=== PATIENT | male | born 1960 | race Caucasian/White ===

== ENCOUNTER 2016-07-03 09:02 | Day surgery (SDC) | payer BC ==
[~2016-07-03] VITALS: Ht 175.3 cm; Wt 90.1 kg
[2016-07-03] VITALS (13 sets, daily range): BP systolic 110–156; BP diastolic 69–97; PULSE 79–110; RESP 10–27; Ht 175.3 cm; Wt 90.1 kg
[~2016-07-03 09:02] MED LIST: CEFAZOLIN 1 GM/50 ML (PMX) 50 ML IVPB ONE
[2016-07-03] MEDS ORDERED: LISI1TAB6 PO (09:26)
[2016-07-03] MEDS ORDERED: LACTATED RINGER'S 1,000 ML IV SCH (10:30)
--- NOTE | 2016-07-03 11:29 | RADRPT ---
PROCEDURE: XR Abdomen. CLINICAL INDICATION: Pre-op. Kidney stones. TECHNIQUE: Two AP view of the abdomen and pelvis is available for review. COMPARISON: None. FINDINGS: The bowel gas pattern is normal. There is no evidence of obstruction. Benign phleboliths are seen wi thin the lower pelvis. There is a small approximately 8 mm calcification seen in the left mid pelvis overlapping the left side of the sacrum which may actually represent a distal ureteral calculus. CT renal stone survey would be confirmatory as deemed necessary. No other obvious or definite calculi are identified. The osseous structures are unremarkable. IMPRESSION: 1. Small 8 mm left pelvic calculus which may represent a distal ureteral calculus, although a benig n phlebolith is within the differential. I have no prior CT or x-ray imaging for comparison at this time. 2. Numerous benign phleboliths are seen within the pelvis at this time. 3. No calculi are seen overlying the expected location of the kidneys on either side. RPTAT: HMJB .Marquis Gonzalez MD, Date Time Electronically viewed and signed by .Marquis Gonzalez MD, MD on 07/03/2016 11:29 .B/
--- NOTE | 2016-07-03 11:43 | HP ---
DATE OF ADMISSION: 07/03/2016 CHIEF COMPLAINT: Left flank pain. HISTORY OF PRESENT ILLNESS: This patient developed left-sided flank pain in November of 2015. His CT u rogram revealed an 8 mm left ureteral stone, left hydronephrosis. He also was found to have a 2 mm left renal stone and a 1 mm right renal stone. The patient was having left sided intermittent flank pain; however, he reports overall his pain has resolved. He has not seen his stone pass. PAST MEDICAL HISTORY: No hypertension, no diabetes. PAST SURGICAL HISTORY: Thyroid surgery in 1996. ALLERGIES: NO KNOWN DRUG ALLERGIES. SOCIAL HISTORY: Rare smoking. Occasional alcohol. MEDICATIONS: The patient was taking tamsulosin for sexual problems, but he stopped. FAMILY HISTORY: No cancer. REVIEW OF SYSTEMS: CONSTITUTIONAL: No fevers, no chills, no change in appetite, weight gain, or weight loss. HEENT: No loss of hearing, no ear/sinus pain. No rhinorrhea, nosebleed, or sore throat. CARDIOVASCULAR: No chest pain, no shortness of breath or heart palpitations. RESPIRATORY: No cough. No phlegm production, wheezing or hemoptysis. GASTROINTESTINAL: No abdominal pain, no cramping, no nausea. MUSCULOSKELETAL: No bone pain. No change in strength or joint pain. INTEGUMENTARY: No skin rash or lesions. NEUROLOGICAL: No dizziness, no headaches, no numbness. PSYCHIATRIC: No suicidal ideation. No depression. PHYSICAL EXAMINATION: CONSTITUTIONAL: The patient appears to be in no acute distress. GASTROINTESTINAL: Abdomen is soft, normal bowel sounds, nondistended, nontender. Hernia exam: Non e noted. Liver and spleen normal. 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 The patient also has scrotal warts, which have be come larger over time. Testes descended bilaterally. Urethral meatus normal in size and location. Penis: No deformity, no lesions, no scarring. ASSESSMENT: 1. Mild to moderate left hydronephrosis. 2. Left mid ureteral stone. 3. Scrotal varices. 4. Sebaceous cyst. 5. Left ureteral stone 8 mm, and 2 mm left renal stone. RECOMMENDATIONS: I have spoken with the patient in detail about the natural history and biology of kidney stones as well as his warts. We have discussed various treatment options. Among these optio ns, the patient has elected to undergo a left ureteroscopy, laser lithotripsy, placement of left ure teral stent, left retrograde pyelogram and cystoscopy as well as excision of the scrotal warts. Thi s procedure has been explained to the patient in detail. The risks and benefits have been discussed . He understands that risks include, but are not limited to infection, bleeding, damage to adjacent structures, heart problems, lung problems, possibility of need for further surgery, DVT, PE, LA, CV A, nonresolution of symptoms, recurrence of symptoms, need for other treatments, need for other surg eries, nonresolution of stone, inability to advance the ureteroscope up to the stone, ureteral stric ture, renal injury, bladder injury, voiding dysfunction. All of his questions have been answered, n o guarantees given. He would like to proceed. Dictated By: VIANNEY VERMA MD, SR/JOHN Conf#: [id number] DID#: [id number]
[2016-07-03] MEDS ORDERED: PROPOFOL 20 ML ONE ×2 (12:10→15:07)
[2016-07-03] MEDS ORDERED: METOCLOPRAMIDE 10 MG INJ ONE (12:10)
[2016-07-03] MEDS ORDERED: MIDAZOLAM 1 MG/ML 2 ML INJ ONE ×2 (12:12→14:38)
[2016-07-03] MEDS ORDERED: CEFAZOLIN 1 GM INJ ONE (12:22)
[2016-07-03] MEDS ORDERED: IOHEXOL 300MG/ML 30 ML BTL ONE (12:41)
[2016-07-03] MEDS ORDERED: EPHEDrine SULFATE 50 MG/5 ML SYG ONE (13:03)
[2016-07-03] MEDS ORDERED: LABETALOL HCL 20MG INJ IV PRN (14:00)
[2016-07-03] MEDS ORDERED: OXYCODONE/ACETAMINOPHEN (5/325) TAB PO PRN ×2 (14:00)
[2016-07-03] MEDS ORDERED: BUPIVACAINE 0.5%/EPI (SDV) 30 ML INJ ONE (14:00)
[2016-07-03] MEDS ORDERED: hydrALAzine 20 MG INJ IV PRN (14:00)
[2016-07-03] MEDS ORDERED: ONDANSETRON 4 MG INJ IV PRN (14:00)
[2016-07-03] MEDS ORDERED: MEPERIDINE 25 MG INJ IV PRN (14:00)
[2016-07-03] MEDS ORDERED: HYDROmorphONE (0.2 MG/ML) 10ML SYG IV PRN ×3 (14:00)
[2016-07-03] MEDS ORDERED: DIPHENHYDRAMINE 50 MG INJ IV PRN ×2 (14:00→15:00)
--- NOTE | 2016-07-03 14:19 | RADRPT ---
PROCEDURE: Intraoperative imaging of the abdomen and pelvis with fluoroscopy. CLINICAL INDICATION: Abdominal pain. Intraoperative. TECHNIQUE: 20 images of the abdomen and pelvis were obtained in the operating room with an image i ntensifier. No radiologist was in attendance. 38.0 of fluoroscopy time was used. COMPARISON: No prior study is available for comparison. FINDINGS: Images demonstrate injection of contrast into the left ureter. There is moderate left hydroureteron ephrosis. An obstructing calculus is noted in the distal left ureter as seen on the prior abdomen r adiograph. Subsequent images demonstrate instrumentation of the left kidney with a flexible endoscop e. The final images demonstrate satisfactory placement of a double pigtail left ureteral stent. IMPRESSION: 1. Satisfactory intraoperative imaging of the abdomen and pelvis. RPTAT: QQ .Rikki Sargent MD, Date Time Electronically viewed and signed by .Rikki Sargent MD, MD on 07/03/2016 14:18 .R/
[2016-07-03] MEDS ORDERED: FENTAnyl 50 MCG/ML VIAL ONE (14:46)
--- NOTE | 2016-07-03 14:54 | OPPN ---
Date/Time of Note Date/Time of Note DATE: 07/03/16 TIME: 14:48 Operative/Procedure Note Pre-Operative Diagnosis Left ureteral stone Scrotal lesions Post-Operative Diagnosis left ureteral stone scrotal lesions Procedure Left ureteroscopy stone lithotripsy Left Stent Placement, RPG Excisional biopsy of scrotal lesions Surgeon: VIANNEY VERMA Findings 50 -100 tightly packed cauliflower looking lesions bilateral scrotum with more lesions dispersed laterally: 12 of these lesions were removed 1 cm distal ureteral stone + impaction Implants/Grafts 6 [place] 28 cm stent Estimated blood loss: 0 - 10 ml's Drains 18 Fr segura cath Specimens ureteral stone left scrotal lesions Complications: None Anesthesia type: general VIANNEY VERMA Jul 03, 2016 14:54
--- NOTE | 2016-07-03 14:57 | PDOCDIS ---
Discharge Instructions CONDITION Patient Condition: Good HOME CARE INSTRUCTIONS: Diet Instructions: Regular ACTIVITY: Activity Restrictions: Slowly Increase Activity Avoid heavy lifting No Sexual Activity Bathing Restrictions: Shower FOLLOW UP/APPOINTMENTS Appointments 3 - 4 weeks for stent removal OTHER ORDERS: Other Orders: instruct pt to expect: left flank pain and left kidney pain with urination, blood in urine, frequent urination SCHOOL/WORK RELEASE May return to School/Work on: Jul 10, 2016 VIANNEY VERMA Jul 03, 2016 14:57
[2016-07-03] MEDS ORDERED: MIDAZOLAM 1 MG/ML 2 ML INJ IV PRN (15:00)
[2016-07-03] MEDS ORDERED: FENTAnyl 50 MCG/ML VIAL IV PRN (15:00)
--- NOTE | 2016-07-03 17:46 | OPR ---
DATE OF OPERATION: 07/03/2016 PREOPERATIVE DIAGNOSES: 1. Left ureteral stone. 2. Scrotal lesions worrisome for warts. POSTOPERATIVE DIAGNOSES: 1. Left ureteral stone. 2. Left hydronephrosis. 3. Bilateral scrotal lesions. PROCEDURES PERFORMED: 1. Cystoscopy with left retrograde pyelogram. 2. Left ureteroscopy, laser lithotripsy, and stone basket extraction. 3. Placement of left ureteral stent. 4. Excisional biopsy of scrotal lesions (12 lesions were excised). INDICATIONS FOR PROCEDURE: This patient has a history of left hydronephrosis and a left ureteral st one. Furthermore, he has a history of scrotal lesions. He is scheduled to undergo the above said p rocedure. The procedure has been explained to the patient in detail. Risks and benefits have been discussed. He understands risks include but are not limited to infection, bleeding, damage to adjac ent structures, heart problems, lung problems, possibility of need for further surgery, DVT, PE, MO, CVA, nonresolution of symptoms, recurrence of symptoms, need for other treatments, need for other s urgeries, inability to advance the ureteroscope up to the stone, need for other stone treatments, ur eteral injury, ureteral stricture, bladder injury, urethral stricture, scrotal injury. All of his q uestions have been answered, no guarantees given. He would like to proceed. FINDINGS: The patient had a very impacted distal ureteral stone. This stone was located about 4 cm proximal to the ureterovesical junction. Stone was impacted into the left ureteral wall. Furtherm ore, there were smaller stones stacked on top of the main large one which was about 1 cm. At the en d of the procedure, the patient appeared to be stone free. A 6-Iranian 28 cm stent was placed for th e patient. The patient also had 5200 tightly packed raised scrotal lesions bilaterally with some sa tellite lesions. These lesions appeared to be tiny cauliflower looking lesions which were red and b rown. He also had a sebaceous cyst of the scrotum. Twelve of these lesions were excisionally biops ied; 2 from the left side and 10 from the right side. It was not possible to remove all the lesions short of excising about 80% of the scrotal skin. PROCEDURE IN DETAIL: The patient was brought to the operating room, underwent general anesthesia. He was placed in the lithotomy position. Abdomen, perineum, and genitalia were prepped and draped i n usual sterile fashion. A 22-Iranian cystoscope was placed transurethrally. Urethra was normal. P rostate was moderately obstructive. There was a thin urethral stricture in the membranous urethra w hich was dilated gently with the cystoscope. Bladder neck was moderately elevated. Bladder was ent ered, 1+ trabeculation was identified. Ureteral orifices were orthotopic. No bladder tumors were s een. No stones were seen in the bladder. An open-ended catheter was placed into the left ureteral orifice, and a retrograde pyelogram was per formed. The stone was identified to be about 1 cm located in the distal ureter, about 4 to 5 cm pro ximal to the ureteral orifice. There was proximal ureteral dilation and renal pelvis calyceal dilat ion, moderate to severe. An attempt was made to pass a wire; however, the wire would not pass beyon d the area of the stone. Cystoscope was discontinued. An 8-Iranian semirigid short ureteroscope was placed transurethrally. This was brought into the [facility] under direct vision. Next, the left ureteral orifice was intubated with the ureteroscope. At t his point, a guidewire was placed through the working channel. The ureteroscope was then advanced u p to the stone. At this point, under direct vision, a wire was passed beyond the stone up into the left kidney under fluoroscopy and direct vision. The ureteroscope was temporarily removed. The wir e was kept as safety. Ureteroscope was placed back into the patient and brought up to the stone. Attention was paid to the laser lithotripsy of the stone. A 200 micron laser fiber was used to eva t the stone. Initial settings were at 8 Hz and 0.8 joules. Maximal settings were 10 Hz and 1 kiloj oule. Stone was treated around its periphery toward the center. Of note, the stone was very impact ed toward the medial and posterior aspect of the ureter. The mucosa was very edematous. There were portions of the ureter which appeared to have had decreased or thinned out mucosa due to the impact ion of the stone. Stone was gently treated until it was treated to dust as well as some tiny smalle r 1 to 2 or 3 mm fragments. Furthermore, there was another 2 to 3 mm fragment which was separate fr om the stone. This was also treated. At this point, the ureteroscope was used to advance a nitinol tipless basket into the ureter. The s tones were individually grasped and brought and placed into the bladder. Multiple passes were made until all the stone fragments had been removed from the ureter in this fashion. The ureteroscope wa s then further advanced up the ureter proximal to the area of the stone impaction. The ureter was v myla edematous and contained frons of bullous edema mucosa. The scope was advanced all the way up to the proximal ureter, and no other stone fragments were seen. At this point, the ureteroscope was u sed to advance the secondary wire. Once this was done, the ureteroscope was discontinued. One wire was used as safety while the other was used to advance an 8-Iranian flexible digital uretero scope all the way up into the left kidney. This was done under direct vision and fluoroscopy. Forrest scopy was performed. Upper pole, middle pole, and lower pole calices were individually examined und er direct vision and fluoroscopy. No stones were seen in any of these calices. There was increased debris and dilation of the kidney; however, no stones were identified. Renal pelvis was also exami miguel. No stones were seen. The ureteroscope was then brought the entire length of the ureter, and n o other stones were seen. The ureteroscope was discontinued. Over the existing wire, an open-ended catheter was readvanced. Retrograde pyelogram was performed t o opacify the left kidney and exhibited no extravasation. Next, the wire was placed back. At this point, the cystoscope was backloaded onto the wire and brought into the bladder. A 6-Iranian 28 cm s tent was then advanced over the wire. The tip of the stent was brought up into the upper pole of th e kidney. The wire was retracted under fluoroscopy. A complete coil was obtained in the left upper pole of the kidney. Next, the stent was further advanced. At this point, the wire was completely and a complete coil was also obtained in the bladder. At this point, the cystoscope was used to remove all of the stone fragments from the bladder. The stone fragments were collected and sent to pathology as left ureteral stones. An 18 Iranian urethral catheter was also placed for the patien t. Cystogram was performed to confirm correct placement in the bladder. The catheter was placed do wn to gravity. Attention was then paid to the treatment of the warts. The previous drapes were removed. The patie nt's scrotum was shaved. It was reprepped and redraped. Attention was then paid to excision of lucita e of these lesions on the scrotum. The patient contained probably about 50 to 100 individual raised lesions which appeared to be tiny cauliflower looking lesions studded along the right and left bethany scrotum. There were some satellite lesions further away from the center of the scrotum. There was also about a 0.5 cm sebaceous cyst in the right upper scrotum. Two u.s. representative lesions from the left upper scrotum were excised using sharp excision. These were collected and sent to pathology as left upper scrotal lesions. The base was then cauterized. On the right side of the scrotum, multi ple lesions were obtained from the right lateral aspect as well as the right superior aspect of the scrotum. Excision was performed using sharp dissecting scissors down to subcutaneous tissue. These lesions were collected and sent to pathology as right superior scrotal lesions as well as right lat eral scrotal lesions. The area of excisional biopsies was all cauterized. Next, the skin was reapp roximated using 4-0 Vicryl interrupted sutures. Of note, it was not physically possible to individu ally remove these lesions since they were tightly packed, great in number, and essentially encompass ed about 80% of the scrotum. Therefore, it was not possible to completely excise all of these lesio ns short of excision of most of the scrotum. At this point, the patient was placed back in the supine position. A dry dressing was applied to th e scrotum. He was then awakened, extubated, and taken to recovery room. POSTOPERATIVE CONDITION: Stable. COMPLICATIONS: None. BLOOD LOSS: Less than 10 mL. BLOOD ADMINISTERED: None. SPECIMENS SENT TO LAB: Scrotal lesions as described above as well as left ureteral stones. DRAINS AND PACKS: 18-Iranian urethral catheter and 6-Iranian 28 cm left ureteral stent. Dictated By: VIANNEY VERMA MD, SR/JOHN Conf#: [id number] DID#: [id number]
--- NOTE | 2016-07-03 23:10 | DS ---
DATE OF ADMISSION: 07/03/2016 DATE OF DISCHARGE: 07/03/2016 ADMITTING DIAGNOSES: Left ureteral stone and bilateral scrotal lesions worrisome for warts. DISCHARGE DIAGNOSES: Left ureteral stone and bilateral scrotal lesions worrisome for warts. HOSPITAL COURSE: The patient was admitted to the hospital and underwent left ureteroscopy, laser li thotripsy, stent placement, as well as excisional biopsy of some of the scrotal lesions. He was the n transferred to recovery room. Once patient was stable, tolerating his diet, remaining afebrile, a nd pain was well controlled, he was discharged home. DISCHARGE INSTRUCTIONS: Activity as tolerated. No heavy lifting. The patient may shower. Follow up in 3 to 4 weeks for stent removal. MEDICATIONS: 1. [place]. 2. Colace. 3. Levaquin. I also spoke with the patient's daughter in regards to the scrotal lesions as well as the stone surg myla. I explained to her that we will need to await the biopsy pathology results from the lesions. If these lesions are warts, then I would suggest that he be referred to a ribber for CO2 abla tion of the lesions. His other choice would be to do a wide excision of bilateral scrotal skin. Dictated By: VIANNEY VERMA MD, SR/JOHN Conf#: [id number] DID#: [id number]
== END 2016-07-03 16:37 | disposition home or self-care (01) ==
LOC: SDS 09:02
PROVIDERS: ATTEND Surgery Surgical Oncology
DX: N13.2 Hydronephrosis with renal and ureteral calculous obstruction (principal); D29.4 Benign neoplasm of scrotum; I10 Essential (primary) hypertension
CPT/HCPCS: 11423; 52356; 74000; 74420; 87086; 88300; 88305; C2617; J0690; J1200; J2250; J2765; J3010; Q9967; Z7512; Z7610